=== PATIENT | female | born 1995 | race Caucasian/White ===

== ENCOUNTER → 2022-06-27 08:59 | Outpatient (BNVA) | payer OTHER, SELFPAY | PROVIDERS: Visit Provider Nurse Practitioner Family | DX: Z13.89 Encounter for screening for other disorder (principal) ==

== ENCOUNTER 2023-01-01 09:20 | Outpatient (AMB) | payer OTHER, SELFPAY ==
--- NOTE | 2023-01-01 09:23 | A.OFFVIS_ITS ---
Intake Vital Signs 01/01/23 09:25 Height 5 ft 6 in Weight 168 lb BMI 27.1 BP 98/78 Blood Pressure Location Rt brachial Position Sitting Intake Visit Reasons: 6 month follow up headaches - Confirmed Intake Note: Patient presents for 6 month follow up . Patient states I feel like they've gotten slightly better but still affected by the weather. Allergies verapamil Adverse Reaction (Verified 01/01/23 09:26) Hives Medication List - Last Reconciled 01/01/23 by NORA Ellsworth amitriptyline 100 mg (4 x 25 mg) PO BEDTIME 90 days propranolol 20 mg PO BID rizatriptan 5 - 10 mg (0.5 - 1 x 10 mg) PO Q2H PRN 21 days HPI HPI Comments History of Present Illness Details 27-yr-old female presents for f/u visit. Pt denies any significant interval medical changes. Pt reports she is having 5-6 headcahe days per month, 1-2 migraine days and the other headache days. The Rizatriptan is usually helpful is taken early enough. May take for stronger regular headache which helps. Migraine triggers still include weather changes. Sometimes the migraine attack comes on too quick and the Rizatriptan does not help as well. Tolerating Amitriptyline, Rizatripan, Propranolol well. No dry mouth. BP is lower today at 98/78. 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 Review of Systems Const All systems reviewed & are unremarkable except as noted in HPI and below Physical Exam Vital Signs: Last Vital Signs BP 98/78 01/01/23 09:25 BMI result Body Mass Index 27.1 Const General: cooperative and no acute distress Orientation/consciousness: patient oriented x3 HEENT Head: Yes normocephalic Resp Effort & Inspection: normal respiratory effort and able to speak in complete sentences Neuro General: patient oriented x3, gait normal and CN's II-XI intact bilaterally Cognition (Neuro): normal cognition Motor exam (neuro): 5/5 motor strength present throughout Psych Appearance: grossly normal Mental Status: mental status grossly normal Speech and movement: Normal speech and movement present Affect: normal affect Attitude: cooperative Thought process: Normal thought process present Thought content: Normal thought content present Insight: Good insight present (Psych) Judgement: Good judgement present (Psych) Assessment & Plan Assessment & Plan (1) Migraine without aura: Code(s): G43.009 - Migraine without aura, not intractable, without status migrainosus (2) 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 Continue Rizatriptan 5-10mg (1/2 - 1 tab) at onset of headache, may repeat in 2 hours. Max of 2 tabs per 24 hours. May adjunct with OTC Tylenol 650mg q 4 hours, Ibuprofen 600mg q 6 hours, or Naproxen 440mg q 12 hrs prn. Continue Propranolol 20mg bid- managed by cardiology. Continue blue light filtering glasses and computer screens. Continue noise reduction headphones while at work. Previous acute migraine tx's- Sumatriptan- not tolerated. Future considerations- Nerivio (information given to pt), CGRP MaB (note pt is nervous about injections). f/u in 6 months or sooner prn Medications: Changed From amitriptyline 75 mg (3 x 25 mg) PO BEDTIME 90 days 270 tabs 1RF To amitriptyline 100 mg (4 x 25 mg) PO BEDTIME 360 tabs 1RF 90 days Coding Level of Care Code Est Pt Level 4 (95214) Diagnoses Migraine without aura G43.009 COVID-19 bran camacho U09.9
[2023-01-01 09:25] VITALS: BP 98/78; BMI 27.1
== END 2023-01-01 10:14 | disposition home or self-care (01) ==
PROVIDERS: Visit Provider Nurse Practitioner Family
DX: G43.009 Migraine without aura, not intractable, without status migrainosus (principal); U09.9 Post COVID-19 condition, unspecified
CPT/HCPCS: 99214

== ENCOUNTER → 2023-01-01 09:20 | Outpatient (BNVA) | payer OTHER, SELFPAY | PROVIDERS: Visit Provider Nurse Practitioner Family ==

== ENCOUNTER 2023-06-26 08:18 | Outpatient (AMB) | payer OTHER, SELFPAY ==
[2023-06-26 08:22] VITALS: BP 100/78; PULSE 78; O2SAT 98; BMI 28.4
--- NOTE | 2023-06-26 08:22 | A.OFFVIS_ITS ---
Intake Vital Signs 06/26/23 08:22 Height 5 ft 6 in Weight 176 lb BMI 28.4 BP 100/78 Blood Pressure Location Rt brachial Position Sitting Pulse 78 Pulse Source Pulse Oximeter Pulse Oximetry (%) 98 Oxygen Delivery Method Room Air Intake Visit Reasons: 6 month follow up headaches-LVM Intake Note: Patient presents for 6 month follow up headaches. my headaches are slightly better. Allergies verapamil Adverse Reaction (Verified 06/26/23 08:29) Hives Medication List - Last Reconciled 06/26/23 by NORA Ellsworth amitriptyline 100 mg (4 x 25 mg) PO BEDTIME 90 days propranolol 20 mg PO BID rizatriptan 5 - 10 mg (0.5 - 1 x 10 mg) PO Q2H PRN 21 days HPI HPI Comments History of Present Illness Details 27-yr-old female presents for f/u visit. Pt denies any significant interval medical changes. Pt reports she is having more good days than bad days. No migraines in days in Apr. She usually would have no headaches Sun, , Sun, and then have mild-mod and Sunday- which responds to Naproxen and/or Rizatriptan. Has had a few migraines in May. Headaches still triggered by weather changes and noise. She did increase the Amitriptyline to 100mg qhs- tolerating well. The Rizatriptan is better tolerated- does not cause nausea. 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 Physical Exam Vital Signs: Last Vital Signs Pulse 78 06/26/23 08:22 BP 100/78 06/26/23 08:22 Pulse Ox 98 06/26/23 08:22 Oxygen Delivery Method Room Air 06/26/23 08:22 BMI result Body Mass Index 28.4 Const General: cooperative and no acute distress Orientation/consciousness: patient oriented x3 Resp Effort & Inspection: normal respiratory effort and able to speak in complete sentences Neuro General: patient oriented x3 Cranial nerves: Yes CN's II-XII intact bilaterally Cognition (Neuro): normal cognition Psych Appearance: grossly normal Mental Status: mental status grossly normal Speech and movement: Normal speech and movement present Affect: normal affect Attitude: cooperative Assessment & Plan Assessment & Plan (1) Migraine without aura: Code(s): G43.009 - Migraine without aura, not intractable, without status migrainosus (2) COVID-19 long halupe: Code(s): U09.9 - Post COVID-19 condition, unspecified Plan Continue Amitriptyline 100mg qhs. Continue Rizatriptan 5-10mg (1/2 - 1 tab) at onset of headache, may repeat in 2 hours. Max of 2 tabs per 24 hours. May adjunct with OTC Tylenol 650mg q 4 hours, Ibuprofen 600mg q 6 hours, or Naproxen 440mg q 12 hrs prn. Continue Propranolol 20mg bid- managed by cardiology. Continue blue light filtering glasses and computer screens. Continue noise reduction headphones while at work. Previous acute migraine tx's- Sumatriptan- not tolerated. Future considerations- Nerivio (information given to pt), CGRP MaB (note pt is nervous about injections). f/u in 6 months or sooner prn Medications: New amitriptyline 100 mg PO BEDTIME 90 tabs 1RF 90 days Refilled rizatriptan max 2 tabs per day or 4 tabs per week 5 - 10 mg (0.5 - 1 x 10 mg) PO Q2H PRN 12 tabs 6RF migraine headache 21 days Discontinued amitriptyline Discontinued Reason: Doctor's Order 100 mg (4 x 25 mg) PO BEDTIME 90 days 360 tabs 1RF Coding Level of Care Code Est Pt Level 4 (51552) Diagnoses Migraine without aura G43.009 COVID-19 bran camacho U09.9
== END 2023-06-26 09:21 | disposition home or self-care (01) ==
PROVIDERS: Visit Provider Nurse Practitioner Family
DX: G43.009 Migraine without aura, not intractable, without status migrainosus (principal); U09.9 Post COVID-19 condition, unspecified
CPT/HCPCS: 99214

== ENCOUNTER → 2023-06-26 08:18 | Outpatient (BNVA) | payer OTHER, SELFPAY | PROVIDERS: Visit Provider Nurse Practitioner Family ==

== ENCOUNTER 2023-12-25 09:19 | Outpatient (AMB) | payer OTHER, SELFPAY ==
--- NOTE | 2023-12-25 09:26 | A.OFFVIS_ITS ---
Vital Signs 12/25/23 09:27 Height 5 ft 6 in Weight 181 lb BMI 29.2 BP 112/74 Blood Pressure Location Rt brachial Position Sitting Intake Visit Reasons: 6 month follow up headaches Intake Note: Patient presents for 6 month follow up. patient still having migraines no change Allergies verapamil Adverse Reaction (Verified 12/25/23 09:28) Hives Medication List - Last Reconciled 12/25/23 by NORA Ellsworth amitriptyline 100 mg PO BEDTIME 90 days propranolol 20 mg PO BID rizatriptan 5 - 10 mg (0.5 - 1 x 10 mg) PO Q2H PRN 21 days HPI Comments Details: 28-yr-old female presents for f/u visit. Pt denies any significant interval medical changes. Pt states that her migraine frequency varies depending on work routine. 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 She contin ues to use noise cancellation ear plugs and blue light filtering glasses. Compliant w/ Amitriptyline and Propranolol Rizatriptan is still helpful. 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 Physical Exam Vital Signs: Last Vital Signs BP 112/74 12/25/23 09:27 BMI result Body Mass Index 29.2 Const General: cooperative and no acute distress Orientation/consciousness: patient oriented x3 Resp Effort & Inspection: normal respiratory effort and able to speak in complete sentences Neuro General: patient oriented x3 Cranial nerves: Yes CN's II-XII intact bilaterally Cognition (Neuro): normal cognition Psych Appearance: grossly normal Mental Status: mental status grossly normal Speech and movement: Normal speech and movement present Affect: normal affect Attitude: cooperative Assessment & Plan Assessment & Plan (1) Migraine without aura: Code(s): G43.009 - Migraine without aura, not intractable, without status migrainosus Category: Medical (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 Continue Rizatriptan 5-10mg (1/2 - 1 tab) at onset of headache, may repeat in 2 hours. Max of 2 tabs per 24 hours. May adjunct with OTC Tylenol 650mg q 4 hours, Ibuprofen 600mg q 6 hours, or Naproxen 440mg q 12 hrs prn. Continue Propranolol 20mg bid- managed by cardiology. Continue blue light filtering glasses and computer screens. Info shared on nighat tinted blue light filtering glasses. Continue noise reduction headphones while at work. Previous acute migraine tx's- Sumatriptan- not tolerated. Future considerations- Nerivio (information given to pt), CGRP antagonist- such as atogepant (note pt is nervous about injections/needle phobia). f/u in 6 months or sooner prn Medications: Refilled amitriptyline 100 mg PO BEDTIME 90 days 90 tabs 1RF rizatriptan max 2 tabs per day or 4 tabs per week 5 - 10 mg (0.5 - 1 x 10 mg) PO Q2H 21 days PRN 12 tabs 6RF migraine headache Coding Level of Care Code Est Pt Level 4 (22428) Diagnoses Migraine without aura G43.009 COVID-19 long hauler U09.9 Phonophobia F40.298 Photophobia H53.149
[2023-12-25 09:27] VITALS: BP 112/74; BMI 29.2
== END 2023-12-25 10:02 | disposition home or self-care (01) ==
PROVIDERS: PCP Family Medicine; Visit Provider Nurse Practitioner Family
DX: G43.009 Migraine without aura, not intractable, without status migrainosus (principal); U09.9 Post COVID-19 condition, unspecified; F40.298 Other specified phobia; H53.149 Visual discomfort, unspecified
CPT/HCPCS: 99214

== ENCOUNTER → 2023-12-25 09:19 | Outpatient (BNVA) | payer OTHER, SELFPAY | PROVIDERS: PCP Family Medicine; Visit Provider Nurse Practitioner Family ==

== ENCOUNTER 2024-07-15 10:19 | Outpatient (AMB) | payer OTHER, SELFPAY ==
[2024-07-15 10:25] VITALS: BP 114/78; PULSE 72; O2SAT 99; BMI 30.2
--- NOTE | 2024-07-15 10:25 | MHC.OFFVIS ---
Vital Signs 07/15/24 10:25 Height 5 ft 6 in Weight 187 lb BMI 30.2 BP 114/78 Blood Pressure Location Rt brachial Position Sitting Pulse 72 Pulse Source Pulse Oximeter Pulse Oximetry (%) 99 Intake Visit Reasons: F/U Intake Note: Patient presents follow up Migraine. Allergies verapamil Adverse Reaction (Verified 07/15/24 10:27) Hives Medication List - Last Reconciled 07/15/24 by NORA Ellsworth amitriptyline 100 mg PO BEDTIME 90 days propranolol 20 mg PO BID rizatriptan 5 - 10 mg (0.5 - 1 x 10 mg) PO Q2H PRN 21 days HPI Comments Details: 28-yr-old female presents for f/u visit. Pt denies any significant interval medical changes. Pt states that her migraine frequency varies depending on work routine. Pt reports that in early June she had a more severe migraine in early June, which lasted 2 days and then had a few additional residual headache days. This migraine was also a/w nausea. Since, she has had an increase in her headache frequency from 4-5 headache days per week, 1 of which is a migraine. which can e a/w nausea and residual symptoms. 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 She continues to use noise cancellation ear plugs and blue light filtering glasses. Compliant w/ Amitriptyline and Propranolol Rizatriptan is still helpful. 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 Info shared on nighat tinted blue light filtering glasses. Continue noise reduction headphones while at work. For migraine prevention: Start Atogepant (Qulipta) 60mg daily at bedtime. Potential side effects include but are not limited to drowsiness, nausea, constipation, weight loss. Continue Amitriptyline 100mg qhs. Continue Propranolol 20mg bid- managed by cardiology. For acute migraine treatment: Continue Rizatriptan 5-10mg (1/2 - 1 tab) at onset of headache, may repeat in 2 hours. Max of 2 tabs per 24 hours. May adjunct with OTC Tylenol 650mg q 4 hours, Ibuprofen 600mg q 6 hours, or Naproxen 440mg q 12 hrs prn. Start ondansetron 4 mg p.o. daily p.r.n. nausea/migraine. Previous acute migraine tx's- Sumatriptan- not tolerated. Future considerations- Nerivio (information given to pt), CGRP antagonist- such as atogepant (note pt is nervous about injections/needle phobia). f/u in 6 months or sooner prn Medications: New atogepant (Qulipta) 60 mg PO DAILY 30 tabs 6RF 30 days G43.009 - Migraine without aura, not intractable, without status migrainosus ondansetron HCl 4 mg PO BEDTIME 20 tabs 2RF 30 days Coding Level of Care Code Est Pt Level 4 (54401) Diagnoses Migraine without aura G43.009 COVID-19 long hauler U09.9 Phonophobia F40.298 Photophobia H53.149
--- OUTSIDE RECORDS SUMMARY | 2024-07-15 12:06 | XMS_ITS | Data Portability ---
Author Organization 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 I have reviewed, collected, and updated relevant history and performed a physical exam. I have reviewed labs, x-rays and/or specialty notes I have interpreted new studies including EKG Below is my assessment and plan for this patient? s care today. [email or web address] Not available 08/11/2021 18:44:54 Plan of Treatment Reminders Order Date Submit Date Provider Last Modified By Organization Details Last Modified Time Details Appointments None recorded. Lab None recorded. Referral cardiologi st referral - please schedule patient for holter monitor f/u with cardiologi st does NOT want to meet with Dr. Stewart 2021 022 [email or web address] [facility] [address], [address], 13:14:[address] referral - pt request to see a female Provider for follow up visits - understand s 1st FISH PROCESSING SUPERVISOR visit needs to be with 2021 022 ISABEL [facility] [address], [address], 12:55:57 Procedures None recorded. Surgeries None recorded. Imaging electrocar diogram 2021 022 [facility], [address] [facility], [place], [address], 07:16:42 holter monitor 2021 022 [email or web address] 1 [facility]), [address] [facility] [address], [place], [address], 18:46:03 Medication Orders propranolo l 10 mg tablet 2021 022 [email or web address] [id number], [address] [place], [address], 16:04:20 propranolo l 10 mg tablet 2021 022 wbaird [id number], [address] [place] [address], [address], 16:04:20 propranolo l 10 mg tablet 2021 022 [email or web address] [id number], [address] [place] [address], [address], 16:04:20 Patient TargetsNo targets recorded. Patient Instructions Encounter Date Encounter Id Patient Instructions Last Modified By Organization Details Last Modified Time 08/11/2021 [id number] - Per our discussion you have agreed with the above assessment/plan as stated. - Please follow-up with our office as recommended and perform lab work/imaging/refe rral if indicated. - You can follow-up with our office sooner for any acute concern at [phone]. - If unable to reach our practice and you are in need of immediate care do not hesitate to seek immediate medical attention by calling 911 or going to the ER/Urgent care. [email or web address] Not available 08/11/2021 18:56:35 08/18/2021 [id number] - Per our discussion you have agreed with the above assessment/plan as stated. - Please follow-up with our office as recommended and perform lab work/imaging/refe rral if indicated. - You can follow-up with our office sooner for any acute concern at [phone]. - If unable to reach our practice and you are in need of immediate care do not hesitate to seek immediate medical attention by calling 911 or going to the ER/Urgent care. - All questions answered. [email or web address] Not available 08/18/2021 10:04:37 08/26/2021 [id number] - Per our discussion you have agreed with the above assessment/plan as stated. - Please follow-up with our office as recommended and perform lab work/imaging/refe rral if indicated. - You can follow-up with our office sooner for any acute concern at [phone]. - If unable to reach our practice and you are in need of immediate care do not hesitate to seek immediate medical attention by calling 911 or going to the ER/Urgent care. - All questions answered. [email or web address] Not available 08/26/2021 12:15:48 09/08/2021 [id number] - Per our discussion you have agreed with the above assessment/plan as stated. - Please follow-up with our office as recommended and perform lab work/imaging/refe rral if indicated. - You can follow-up with our office sooner for any acute concern at [phone]. - If unable to reach our practice and you are in need of immediate care do not hesitate to seek immediate medical attention by calling 911 or going to the ER/Urgent care. - All questions answered. [email or web address] Not available 09/08/2021 07:50:36 09/26/2021 [id number] - Per our discussion you have agreed with the above assessment/plan as stated. - Please follow-up with our office as recommended and perform lab work/imaging/refe rral if indicated. - You can follow-up with our office sooner for any acute concern at [phone]. - If unable to reach our practice and you are in need of immediate care do not hesitate to seek immediate medical attention by calling 911 or going to the ER/Urgent care. - All questions answered. 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 Stewart Referring Physician: Naveen Thibodeaux [facility], Encounter Date: 08/26/2021 Results Created Date Observation Date Name Description Value Unit Range Abnormal Flag Note LastModifiedBy Organization Detail LastModifiedTime 11/10/19 22 11/10/2021 SARS- COV-2 RNA (COVI D-19) , QUALI TATIV E NAAT sarscov2 NEGATI VE negati ve normal This test has been autho rized by the FDA under an Emerg ency Use Autho rizat ion(E UA) for you by autho rized labs. Not Available [address], [address], 11/10/2021 14:46:49 04/04/20 22 04/04/2022 CBC WBC 5.52 K/? ? ?L 3.98-1 0.04 Not Available [address], [address], 04/04/2022 17:05:18 04/04/20 22 04/04/2022 CBC RBC 4.38 M/? ? ?L 3.93-5 .22 Not Available [address], [address], 04/04/2022 17:05:18 04/04/20 22 04/04/2022 CBC HGB 12.7 g/dL 11.2-1 5.7 Not Available [address], [address], 04/04/2022 17:05:18 04/04/20 22 04/04/2022 CBC HCT 38.7 % 34.1-4 4.9 Not Available [address], [address], 04/04/2022 17:05:18 04/04/20 22 04/04/2022 CBC MCV 88.4 fL 79.4-9 4.8 Not Available [address], [address], 04/04/2022 17:05:18 04/04/20 22 04/04/2022 CBC MCH 29.0 pg 25.6-3 2.2 Not Available [address], [address], 04/04/2022 17:05:18 04/04/20 22 04/04/2022 CBC MCHC 32.8 g/dL 32.2-3 5.5 Not Available [address], [address], 04/04/2022 17:05:18 04/04/20 22 04/04/2022 CBC plt 299 K/? ? ?L 182-36 9 Not Available [address], [address], 04/04/2022 17:05:18 04/04/20 22 04/04/2022 CBC MPV 9.7 fL 9.4-12 .3 Not Available [address], [address], 04/04/2022 17:05:18 04/04/20 22 04/04/2022 CBC neut% 53.0 % 34.0-7 1.1 Not Available [address], [address], 04/04/2022 17:05:18 04/04/20 22 04/04/2022 CBC neut# 2.93 1.56-6 .13 Not Available [address], [address], 04/04/2022 17:05:18 04/04/20 22 04/04/2022 CBC lymph % 36.1 % 19.3-5 1.7 Not Available [address], [address], 04/04/2022 17:05:18 04/04/20 22 04/04/2022 CBC lymph # 1.99 K/? ? ?L 1.18-3 .74 Not Available [address], [address], 04/04/2022 17:05:18 04/04/20 22 04/04/2022 CBC mono% 8.9 % 4.7-12 .5 Not Available [address], [address], 04/04/2022 17:05:18 04/04/20 22 04/04/2022 CBC mono# 0.49 0.24-0 .56 Not Available [address], [address], 04/04/2022 17:05:18 04/04/20 22 04/04/2022 CBC eo% 0.7 % 0.7-5. 8 Not Available [address], [address], 04/04/2022 17:05:18 04/04/20 22 04/04/2022 CBC eo# 0.04 0.04-0 .36 Not Available [address], [address], 04/04/2022 17:05:18 04/04/20 22 04/04/2022 CBC baso% 0.9 % 0.1-1. 2 Not Available [address], [address], 04/04/2022 17:05:18 04/04/20 22 04/04/2022 CBC baso# 0.05 0.00-0 .08 Not Available [address], [address], 04/04/2022 17:05:18 04/04/20 22 04/04/2022 CBC RDW-CV 12.9 % 11.7-1 4.4 Not Available [address], [address], 04/04/2022 17:05:18 04/04/20 22 04/04/2022 CBC Ig% 0.400 % 0.000- 1.500 Ig % >0.5 Indic ates possi ble Left Shift Not Available [address], [address], 04/04/2022 17:05:18 04/04/20 22 04/04/2022 CBC Ig# 0.020 0.000- 0.093 Not Available [address], [address], 04/04/2022 17:05:18 04/04/20 22 04/04/2022 CBC NRBC% 0.0 % 0.0-0. 2 Not Available [address], [address], 04/04/2022 17:05:18 04/04/20 22 04/04/2022 CBC NRBC# 0.000 0.000- 0.012 Not Available [address], [address], 04/04/2022 17:05:18 04/04/20 22 04/05/2022 FREE T4 free T4 1.06 NG/dL 0.75-1 .54 Not Available [address], [address], 04/05/2022 09:53:46 04/04/20 22 04/05/2022 COMP. METAB OLIC PANEL glucose 117 mg/dL 70-100 high Not Available [address], [address], 04/05/2022 10:49:04 04/04/20 22 04/05/2022 COMP. METAB OLIC PANEL BUN 12 mg/dL 7-18 Not Available [address], [address], 04/05/2022 10:49:04 04/04/20 22 04/05/2022 COMP. METAB OLIC PANEL creatinine 0.7 mg/dL 0.8-1. 3 low Not Available [address], [address], 04/05/2022 10:49:04 04/04/20 22 04/05/2022 COMP. METAB OLIC PANEL B/C 17.1 ratio Not Available [address], [address], 04/05/2022 10:49:04 04/04/20 22 04/05/2022 COMP. METAB OLIC PANEL GFR >=60ML /MIN mL/mi n normal >=60m L/min - Gracie l or midly reduc ed <60mL /min- Decre ased kidne y funct ion <15mL /min - Kidne y failu re [facility] calcu lates estim ated Glome rular Filtr ation Rate (eGFR ) using the Chron ic Kidne y Disea se Epide miolo gy Colla borat ion (CKD- EPI) Equat ion (Abdi kendrick et. al 2020) as recom boom d by the Natio nal Kidne y Found ation . eGFR is based on age, serum creat inine , and sex. CKD-E PI does not calcu late eGFR by race, does not apply to child casey (age <18 years ), and shoul d not be used in pregn srinivasa. Not Available [address], [address], 04/05/2022 10:49:04 04/04/20 22 04/05/2022 COMP. METAB OLIC PANEL sodium 138 mmol/ L 136-14 5 Not Available [address], [address], 04/05/2022 10:49:04 04/04/20 22 04/05/2022 COMP. METAB OLIC PANEL potassium 4.7 mmol/ L 3.5-5. 1 Not Available [address], [address], 04/05/2022 10:49:04 04/04/20 22 04/05/2022 COMP. METAB OLIC PANEL chloride 101 mmol/ L 96-107 Not Available [address], [address], 04/05/2022 10:49:04 04/04/20 22 04/05/2022 COMP. METAB OLIC PANEL anion gap 6.7 5.0-15 .0 Not Available [address], [address], 04/05/2022 10:49:04 04/04/20 22 04/05/2022 COMP. METAB OLIC PANEL CO2 30 mmol/ L 21-32 Not Available [address], [address], 04/05/2022 10:49:04 04/04/20 22 04/05/2022 COMP. METAB OLIC PANEL calcium 8.8 mg/dL 8.5-10 .3 Not Available [address], [address], 04/05/2022 10:49:04 04/04/20 22 04/05/2022 COMP. METAB OLIC PANEL total protein 7.3 g/dL 6.4-8. 2 Not Available [address], [address], 04/05/2022 10:49:04 04/04/20 22 04/05/2022 COMP. METAB OLIC PANEL albumin 3.9 g/dL 3.4-5. 0 Not Available [address], [address], 04/05/2022 10:49:04 04/04/20 22 04/05/2022 COMP. METAB OLIC PANEL globulin 3.4 g/dL Not Available [address], [address], 04/05/2022 10:49:04 04/04/20 22 04/05/2022 COMP. METAB OLIC PANEL A/G 1.1 ratio 0.8-2. 0 Not Available [address], [address], 04/05/2022 10:49:04 04/04/20 22 04/05/2022 COMP. METAB OLIC PANEL total bilirubin 0.20 mg/dL 0.00-1 .00 Not Available [address], [address], 04/05/2022 10:49:04 04/04/20 22 04/05/2022 COMP. METAB OLIC PANEL AST 16 U/L 0-37 Not Available [address], [address], 04/05/2022 10:49:04 04/04/20 22 04/05/2022 COMP. METAB OLIC PANEL ALT 22 U/L 6-63 Not Available [address], [address], 04/05/2022 10:49:04 04/04/20 22 04/05/2022 COMP. METAB OLIC PANEL alk. phos. 57 U/L 50-136 Not Available [address], [address], 04/05/2022 10:49:04 04/04/20 22 04/05/2022 TSH TSH 1.87 uIU/m L 0.50-6 .00 The Ameri can Colle ge of Endoc rinol ogy and Ameri can Thyro id Assoc iatio n recom mend goal TSH value s betwe en 0.4-4 .0 mIU/m L. Not Available [address], [address], 04/05/2022 11:28:47 08/03/19 22 08/02/2021 elect shirin katz am No observ ation record ed. [email or web address], [address], 08/11/2021 18:43:13 08/03/19 22 08/02/2021 elect rocar diogr am No observ ation record ed. [email or web address] Not Available 08/02 16:06:39 08/12/19 22 08/12/2021 elect rocar diogr am No observ ation record ed. [address], [address], 08/12/2021 07:16:42 08/13/19 elect rocar diogr am No observ ation record ed. [email or web address] Not Available 2021 07:53:50 09/09/19 22 09/06/2021 trans -thor acic echoc ardio gram (TTE) (PROC ) No observ ation record ed. [email or web address] named [facility] [address], [address], 09/08/2021 16:26:31 Result Notes None recorded. 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 CHRISTY Diana [address] [place] [address], [phone] , [facility] 2 19:07:20 Migraine with aura 5051538 Active 2020 CHRISTY Diana [address] [place] [address], [phone] , [facility] 2 19:08:13 COVID-19 182477143 Active 2021 tested pos 07/21/21 CHRISTY Diana [address] [place] [address], [phone] , [facility] 2 19:09:55 Obesity 112490824 Completed 200609/04/2016 Removal Reason: weight stable Jana Aranda NP [address] [place] [address], [phone] , [facility] 7 11:32:14 Acute stress disorder 20787468 Completed 200112/13/2010 Not Available [facility] 3 03:11:07 Sprain of ankle and/or foot 197196195 Completed 200812/13/2010 Not Available [facility] 3 03:11:07 Problem Notes None recorded. Procedures Surgical History None recorded. Imaging Results Imaging Date Name Status LastModified by Organization Details LastModified Time 08/02/2021 electrocardiogram completed [address], [address], 08/11/2021 18:43:13 08/02/2021 electrocardiogram [place] [address] Informa tion not available 08/02/2021 16:06:39 08/12/2021 electrocardiogram completed [address], [address], 08/12/2021 07:16:42 08/12/2021 electrocardiogram completed [email or web address] Informa tion not available 08/22/2021 07:53:50 09/06/2021 trans-thoracic echocardiogram (TTE) (PROC) completed [address] [facility] [address], [address], 09/08/2021 16:26:31 Procedure Notes None recorded. Medical Equipment None Reported. Allergies No known drug allergies Medications Name Sig Start Date Stop Date Status Note LastModified by Organization Details LastModified Time Tubersol 5 tub. unit/0.1 mL intraderm al injection solution Inject 0.1 mL by intrader mal route. 08/01 completed Not Available Not Available Not Available sumatript an 50 mg tablet TAKE 1 - 2 TABLETS BY ORAL ROUTE AFTER ONSET OF MIGRAINE ; MAY REPEAT AFTER 2 HOURS IF HEADACHE RETURNS (MAX 4 PER WEEK) 03/31 completed Not Available Not Available Not Available amitripty line 50 mg tablet Take 1.5 tablets by mouth every evening. 03/31 completed prescrib ed by neuro Not Available Not Available Not Available propranol ol 10 mg tablet TAKE 1 TABLET BY MOUTH TWICE A DAY 03/31 completed Not Available Not Available Not Available [employer] Vitamins chewable tablet 2006 active Take 1.00 tabs every day Not Available Not Available Not Available ibuprofen prn 03/31 completed Not Available Not Available Not Available Vitamin D 03/31 completed Not Available Not Available Not Available Tylenol PRN 03/31 completed Not Available Not Available Not Available verapamil 09/08 completed Not Available Not Available Not Available Vitamin C (ascorbat e calcium) 03/31 completed Not Available Not Available Not Available Vitals Date Recorded Body height Body mass index (BMI) Body weight Oxygen saturation Oxygen saturation in Arterial blood by Pulse oximetry Heart rate Systolic blood pressure Diastolic blood pressure Provider Name and Address Organization Details Last Updated DateTime 2 167.01 cm 31.1 kg/m2 02571.1 9 g 98 % 98 % 130 /min 142 mm[Hg] 92 mm[Hg] Amaris Contreras MA [facility] 2 16:09:11 Date Recorded Body height Body mass index (BMI) Body weight Heart rate Systolic blood pressure Diastolic blood pressure Provider Name and Address Organization Details Last Updated DateTime 2 167.01 cm 30.6 kg/m2 07202.3 7 g 130 /min 120 mm[Hg] 80 mm[Hg] Danyelle Soto MA [facility] 2 09:47:05 Date Recorded Body height Body mass index (BMI) Body weight Heart rate Oxygen saturation Oxygen saturation in Arterial blood by Pulse oximetry Systolic blood pressure Diastolic blood pressure Provider Name and Address Organization Details Last Updated DateTime 2 167.01 cm 30.5 kg/m2 04824.1 7 g 126 /min 98 % 98 % 142 mm[Hg] 80 mm[Hg] Danyelle Soto MA [facility] 2 12:06:16 Date Recorded Body height Body mass index (BMI) Body weight Heart rate Oxygen saturation Oxygen saturation in Arterial blood by Pulse oximetry Systolic blood pressure Diastolic blood pressure Provider Name and Address Organization Details Last Updated DateTime 2 167.01 cm 29.8 kg/m2 03416.5 g 72 /min 97 % 97 % 118 mm[Hg] 82 mm[Hg] Lauren Rowan MA [facility] 2 08:20:11 Date Recorded Body height Body mass index (BMI) Body weight Heart rate Oxygen saturation Oxygen saturation in Arterial blood by Pulse oximetry Systolic blood pressure Diastolic blood pressure Provider Name and Address Organization Details Last Updated DateTime 2 167.01 cm 29 kg/m2 27824.8 4 g 80 /min 98 % 98 % 118 mm[Hg] 80 mm[Hg] Danyelle Soto MA [facility] 2 09:39:52 Social History Question Answer Notes LastModified by Organizat ion Details LastModified Time Tobacco Smoking Status Never Smoker 08/2016 [facility]2016 10:59:15 What Is Your Level Of Alcohol Consumption? None 08/2016 Information not available 09/04/2016 What Is Your Level Of Caffeine Consumption? Moderate 1-2 Cpd Information not available 09/04/2016 How Much Tobacco Do You Chew? None 7 Information not available 03/02/2011 What Type Of Diet Are You Following? REGULAR 7 Information not available 03/02/2011 Education 4 Year [facility] Fall 2016 [email or web address] Information not available 11/30/2008 Live Alone Or With Others? With Others Parents Information not available 09/04/2016 Mosquito Repellent Used Routinely Yes Information not available 09/04/2016 What Was The Date Of Your Most Recent Tobacco Screening? 09/08/2021 [email or web address] Information not available 09/08/2021 Seat Belts Used Routinely Yes 7 Information not available 03/02/2011 Are You Sexually Active? No 7 Information not available 03/02/2011 Smoke Alarm In Home Yes Information not available 09/04/2016 What Types Of Sporting Activities Do You Participate In? Horse Back Riding Information not available 09/04/2016 General Stress Level Low 7 Information not available 03/02/2011 Do You Use Sunscreen Routinely? Yes 7 Information not available 03/02/2011 Sex: Female Functional Status Question Answer Note LastModified by Organizat ion Details LastModified Time What is your exercise level? Moderate Information n ot available 03/02/2011 Mental Status None recorded. Family History Nothing Reported. Medical History No medical history recorded. Gynecological History Statement/Question Response Menses Monthly Y [age] Menarche [age] Obstetrics History GPAL:G 0 P 0 0 0 0 Immunizations Vaccine Type Date Status Note Provider Nam e and Address Organization Details Recorded Time DTaP, unspecified formulation 3 completed Not Available [facility] 03/01/2011 05:21:07 MMR 3 completed Not Available [facility] 03/01/2011 05:21:07 IPV 3 completed Not Available [facility] 03/01/2011 05:21:07 DTaP, unspecified formulation 9 completed Not Available [facility] 03/01/2011 05:22:13 Hib, unspecified formulation 8 completed Not Available [facility] 03/01/2011 05:22:26 varicella 9 completed Not Available [facility] 03/01/2011 05:22:26 IPV 8 completed Not Available [facility] 03/01/2011 05:22:26 Hib, unspecified formulation 7 completed Not Available [facility] 03/01/2011 05:22:26 DTaP, unspecified formulation 8 completed Not Available [facility] 03/01/2011 05:22:26 Hib, unspecified formulation 9 completed Not Available [facility] 03/01/2011 05:22:26 Hep B, unspecified formulation 7 completed Not Available [facility] 03/01/2011 05:22:26 DTaP, unspecified formulation 8 completed Not Available [facility] 03/01/2011 05:22:26 IPV 8 completed Not Available [facility] 03/01/2011 05:22:26 Hep B, unspecified formulation 8 completed Not Available [facility] 03/01/2011 05:22:26 IPV 7 completed Not Available [facility] 03/01/2011 05:22:26 Hep B, unspecified formulation 8 completed Not Available [facility] 03/01/2011 05:22:26 Hib, unspecified formulation 7 completed Not Available [facility] 03/01/2011 05:22:26 DTaP, unspecified formulation 9 completed Not Available [facility] 03/01/2011 05:22:26 MMR 8 completed Not Available [facility] 03/01/2011 05:22:26 DTaP, unspecified formulation 7 completed Not Available [facility] 03/01/2011 05:22:26 Tdap 9 completed Not Available [facility] 05/03/2019 02:24:02 Tdap 9 completed Not Available [facility] 05/03/2019 02:19:48 COVID-19, mRNA, LNP-S, PF, 100 mcg/0.5mL dose or 50 mcg/0.25mL dose 1 completed Hortensia Lara MA [facility] 08/01/2021 08:24:49 COVID-19 vaccine, vector-nr, rS-Ad26, PF, 0.5 mL 1 completed Amaris Contreras MA [facility] 08/02/2021 08:18:42 COVID-19, mRNA, LNP-S, bivalent, PF, 30 mcg/0.3 mL dose 2 completed Tri Coleman RN [facility] 12/30/2021 11:50:18 Past Encounters Encounter ID Performer Location Encounter Start Date Encounter Closed Date Diagnosis/Indication Diagnosis SNOMED-CT Code Diagnosis ICD10 Code Diagnosis Note [id number] MILENA PATHAK, OFFICE [address] [facility] [place] [address] 10/18/2001 10:34:38 05/06/2008 02:02:29 [id number] MILENA PATHAK, OFFICE [address] [facility] [place] [address] 01/22/2003 09:38:28 01/22/2003 12:35:24 [id number] [facility], OFFICE [address] [facility] [place] [address] 01/23/2005 10:11:33 01/23/2005 14:36:17 [id number] [facility], OFFICE [address] [facility] [place] [address] 02/25/2007 10:37:09 05/06/2008 02:02:29 [id number] [facility], OFFICE [address] [facility] [place] [address] 11/30/2008 10:39:51 12/01/2008 08:57:26 [id number] [facility], OFFICE [address] [place] [address] [place] [address] 12/21/2010 10:15:21 12/21/2010 11:24:21 [id number] [facility], OFFICE [address] [place] [address] [place] [address] 06/14/2011 13:03:42 06/15/2011 12:06:56 [id number] Lori Cheatham MD [facility] , [address] [place] [address] 06/14/2011 13:36:41 06/14/2011 13:46:42 [id number] Lori Cheatham MD , [facility], OFFICE [address] [place] [address] [place] [address] 07/22/2013 10:02:43 07/22/2013 11:23:41 Well child [id number] Administra tion of bacterial vaccine [id number] pt refusing, will do when all other immunizati ons done prior to [facility] [id number] Examinatio n for population survey [id number] Carla Frey , [facility], OFFICE [address] [facility] [place] [place] [address] 11/25/2013 08:51:38 11/25/2013 09:27:05 Concussion 38654473 after fall of horse, resolved Backache [id number] inter mitte nt numbness L hip/should er after fall--ref Dr Tati kendrick [id number] Nirali Aleman MD , [facility] [address] [facility] [place]ud[place] [phone] 03/08/2015 09:10:01 03/08/2015 10:08:37 Sprain of foot [id number] S93.602A it's unclear how this happened but her theory was she hit the wall with her foot during the night/and that seems likely/she did nothing in the past couple days that she could've injured it and she was fine when she went to bed last night/does have a history of ruptured disc and some sciatica but this is quite different/ at any rate she has crutches will try an Jt wrap she'll ice it /elevation /ibuprofen expect improvemen t over the next 1-2 weeks/we have had a three-way conversati on about x-ray and I think it x-ray is extremely low yield, and can safely be avoided at this time/mom and patient are happy to avoid the radiation [id number] LAWSON, [facility] [address] [facility] [facility] [address] 09/04/2016 10:36:23 09/04/2016 14:49:36 Adult health examination [id number] Z00.00 see Risk Assessment and Lifestyle Change Counseling section above Counseling [id number] Z71 .9 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 Leny suffered a concussion in 2013 after she fell of a horse there was a positive LOC she was evaluated in ED at the time and had negative head CT since she has had difficulty concentrat ing with external stimuli and has headaches when readingShe is requesting accommodat ions for school at [employer] where she will be starting in Nov [id number] HAYDER Cuadra, [facility] [address] [facility] [place] [address] 08/27/2017 08:48:42 08/27/2017 09:13:20 Tuberculosis screening [id number] Z11.1 [id number] BETZAIDA Paige, [facility] [address] [facility] [facility] [address] 10/31/2018 14:20:24 10/31/2018 16:35:20 Active or passive immunization [id number] Z23 [id number] NORA Zamorano, [facility] [address] [place] [facility] [address] 08/01/2021 08:22:53 08/01/2021 10:04:36 COVID-19 [id number] U07.1 DX through PCR on 07/21/21. Moderate symptoms. Not considered high risk based on age, PMH.Provid ed work-not for this week. Will need to evaluate need for continued work accomodati ons if she is not improving. Tight chest [id number] R07 .89 Suspect that symptoms are r/t viral illness and will continue to improve. NAD on exam and home HR and 02 SAT WNLs. No HX of asthma. With that being said, I do think Leny would benefit from in-office evaluation since it has been > 2 weeks since symptom onset. 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 Tachycardia [id number] R00. 0 Suspect that symptoms are r/t viral illness and will continue to improve. With that being said, I do think Leny would benefit from in-office evaluation . [id number] CHRISTY Diana , [facility] [address] [facility] [place] [address] 08/02/2021 08:15:55 08/02/2021 09:20:23 COVID-19 [id number] U07.1 Sx onset 07/19/21 w/ positive COVID test 07/21/21. Suspect that symptoms are r/t viral illness and will continue to improve. Continues with tachycardi a and chest tightness, ?post-covi d/prolonge d symptoms. Discussed wide variabilit y in time to symptom resolution , may last for weeks to months. Tight chest [id number] R07 .89 Subjective chest tightness most likely r/t viral illness/ prolonged COVID symptoms. HRR on exam, not diaphoreti c, no clear relationsh ip to activity, unlikely to be cardiac/an patrick. No HX of asthma; O2sat reassuring 98%.Review ed importance of deep breathing. Reviewed red flag symptoms and when to seek emergency care. Tachycardia [id number] R00. 0 EKG sinus tach w/ HR 120. Baseline HR seems to be 70-90's per our record.HRR on exam. Reporting significan t fatigue which is likely related to her tachycardi a. Prolonged COVID syndrome seems likely.Den ies any experience of HR irregulari ty or palpitatio ns, consider holter monitor if these develop and/or tachycardi a persists.R eviewed indication s for ED visit/urge nt f/u. F/u PRN. EKG: P-R i nterval abnormal [id number] R94.31 Borderline short HI syndrome noted on EKG, HI 110. ?preexcita tion. NO delta waves noted. No prior EKG for comparison , consider repeating EKG once more acute symptoms resolved and cardiology referral if indicated. F/u PRN. [id number] , [facility] [address] [facility] [place] [address] 08/11/2021 15:53:59 08/11/2021 16:50:07 Tachycardia [id number] R00.0 EKG sinus tach w/ HR 123. Baseline HR seems to be 70-90's per our record.HRR on exam. Reporting significan t fatigue which is likely related to her tachycardi a. Prolonged COVID syndrome seems likely.Den ies any experience of HR irregulari ty but endorses experience of heartbeat pounding/ palpitatio ns. Unclear clinical picture, should r/o preexcitat ion syndrome/W FW and POTS.Will send for cardiology referral and order holter monitor in the interim. Consider starting BB if unable to tolerate tachycardi a or if sx persist once these other issues are ruled-out. Plan for close monitoring , f/u in 1 week to assess ability to return to work (virtual visit OK).Review ed indication s for ED visit/urge nt f/u. F/u sooner PRN. COVID-19 [id number] U07.1 Sx onset 07/19/21 w/ positive COVID test 07/21/21. Suspect that symptoms are r/t viral illness and will continue to improve. Continues with tachycardi a and chest tightness, ?post-covi d/prolonge d symptoms. Discussed wide variabilit y in time to symptom resolution , may last for weeks to months. EKG: P-R i nterval abnormal [id number] R94.31 I45.6 HI again measured short on repeat EKG. HI 110 >> 106. ?preexcita tion. NO delta waves noted. No historic/p rior EKG for comparison . Wide variation in heart rate, as low as 85 at rest and >120.Uncle ar clinical picture, should r/o preexcitat ion syndrome/W FW and POTS. Pending holter and cardiology referral, see above. F/u in 1 week, sooner PRN. 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 She was evaluated in ED at the time and had negative head CT. Since this event she has had difficulty concentrat ing with external stimuli and has headaches when reading. Followed by concussion clinic ([facility]), last seen October 2020. Ongoing but sx recently worse including mental fog and mild confusion. ?Re: long COVID. In the setting of chronic migraine headaches, see below. Administra tive reason for encounter [id number] Z02.9 On medical leave from work. Return to work date pushed from 08/16 to 08/23, not currently able to tolerate. Plan for 1/2 shifts x2 weeks once able to return. Extension letter generated and form completed for work. Migraine with aura 42069 06 G43.109 Hx of migraines w/ aura, responsive to rest, dark/quiet environmen t, ibuprofen and/or imitrex. Continues on amtriptyli ne 50mg daily at bedtime, prescribed by neuro. [id number] RASHEED Mccabe, [facility] 329 [facility] [place] [address] 08/18/2021 09:45:43 08/18/2021 11:37:02 Tachyarrhythmia [id number] R00.0 symptomati c with exertion and causing generalize d fatigue following recent covid-19 infection 07/21/2021 . prescribed verapamil by cardiology but unable to start medication promptly. will begin this weekend. advised symptomati c carestart verapamil and f/u next week in office for re-assessm ent.oow until 08/30/2021 short term leave paperwork and note provided for employer. Post-acute COVID-19 1119 098432 U09.9 continue symptomati c care. [id number] RASHEED Mccabe [facility] 329 [facility] [place] [address] 08/26/2021 11:47:58 08/26/2021 12:37:43 Tachyarrhythmia 6801911 R00.0 symptomati c with exertion and causing generalize d fatigue following recent covid-19 infection 07/21/2021 .symptoms were improving until prescribed verapamil by cardiology which caused fatigue. patient has d/c medication . advised symptomati c caretrial propranolo lpatient would like to see another cardiologi [facility] placed.f/u in 2 weeksshort term leave paperwork and note provided for employer. Post-acute COVID-19 1119 548141 U09.9 dx 07/21/2021 continues with weakness, fatigue, muscle achesconti nue symptomati c care. [id number] Naveen Thibodeaux PA-C , [facility] [address] [facility] [place] [address] 09/08/2021 08:10:41 09/08/2021 08:41:31 Tachyarrhythmia 4407670 R00.0 symptomati c with exertion and causing generalize d fatigue following recent covid-19 infection 07/21/2021 .symptoms were improving until prescribed verapamil by cardiology which caused fatigue. at last visit 08/26/2021 verapamil d/c and started propranolo l 10 mg BID. since then tachycardi a much improved. symptomati pritesh feeling better. advised symptomati c carecontin ue propranolo l. refill today.f/u with cardiology in 1 week.f/u in 3 weeksshort term leave paperwork and note provided for employer. 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 Post-acute COVID-19 1119 617751 U09.9 dx 07/21/2021 continues with weakness, fatigue, muscle achesconti nue symptomati c care. [id number] RASHEED Mccabe, [facility] [address] [facility] [place] [address] 09/26/2021 09:26:09 09/26/2021 09:56:10 Tachyarrhythmia 9223557 R00.0 symptomati c with exertion and causing generalize d fatigue following recent covid-19 infection 07/21/2021 .symptoms were improving until prescribed verapamil by cardiology which caused fatigue. verapamil d/c and started propranolo l 10 mg BID. since then tachycardi a much improved. symptomati pritesh feeling better. still intermitte nt migraines. advised symptomati c carecontin ue propranolo l. refill today.f/u with cardiology in in november 2021.f/u in 2 weeksshort term leave paperwork and note provided for employer. 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 Post-acute COVID-19 1119 [id number] U09.9 dx 07/21/2021 continues with weakness, fatigue, muscle aches. migraines are the worst.cont inue symptomati c care.advis ed do not overuse sumatripta n as it can make migraines worse. Health Concerns Section Related Observation LastModified by Organization Detai ls LastModified Time None Recorded Concern Status LastModified by Organization Details LastModified Time None Recorded Advance Directives Directive None Recorded Payers Encounter Date Sequence Insurance Name Policy Number Policy Rice Covered Member ID Rice Member ID Guarantor Name 08/11/2021 1 [facility] ([facility] [place] [facility] [id number] Tommie Ortiz [id number] Leny Ortiz 08/18/2021 1 [facility] ([facility] [place] [id number] Tommie Ortiz [id number] Lenyel Ortiz 08/26/2021 1 [facility] ([facility] [place] [id number] Tommie Ortiz [id number] Leny Ortiz 09/08/2021 1 [facility] ([facility] [place] [id number] Tommie Ortiz [id number] Leny Andrei Ortiz 09/26/2021 1 [facility] ([facility] [place] [id number] Tommie Ortiz [id number] Leny Andrei Ortiz Notes Date Note Type Note Provider Name and Address Organization Details Recorded Time 08/11/2021 text/html Leny is a 25-year-old female presents here for a f/u visit with the following concerns: COVID Symptoms lingering. Still experiencing fatigue, cough and tachycardia. Pt reports HR gets to 170s when casually walking around. Went down w/ rest. Resting HF is in 80s-90s. Occurs if she is up for more than 10 minutes or walking up and down stairs. Some continued joint pain. No current fever. Has not been evaluated in the office yet. Taking ibuprofen for muscle aches. Triptans for headache. Was working remotely. Was supposed to go back to work in office on 08/01/21. For 8 hr work day. 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 Does need to ambulate back and forth to bathroom, cafeteria. if lying down in bed pulse is 85-90, if walking goes up to 130's, going up and down stairs it goes up to 150's. Chest isn't as tight CHRISTY Diana [address] [place] [address], [phone], [facility] 08/11/2021 18:58:59 08/18/2021 text/html Leny is a 25-year-old female presents via video for f/u evaluation of long covid syndrome. prior hx of tachyarrhythmia dx for covid-19 07/21/2021 but was sick a few days prior.intermittent fatigue, cough, and tachycardia.tachyarrh ythmia reappeared following covid-[address] 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 Does need to ambulate back and forth to bathroom, cafeteria. Was working remotely. Was supposed to go back to work in office on 08/01/21. for 8 hours per day. Naveen Thibodeaux PA-C [address] [place], [phone], [facility] 08/18/2021 10:17:01 08/26/2021 text/html Leny is a 25-year-old female presents in office for f/u evaluation of long covid syndrome. prior hx of tachyarrhythmia dx for covid-19 07/21/2021 but was sick a few days prior.intermittent fatigue, cough, and tachycardia.tachyarrh ythmia reappeared following covid-[address] cardiology [address] 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 Does need to ambulate back and forth to bathroom, cafeteria. Was working remotely. Was supposed to go back to work in office on 08/01/21. for 8 hours per day. 08/26/21Started on Verapamil 08/20/21 for the tachycardia, pt reports feeling tired for a couple days, stopped taking on sunday the after she had hives sunday night and ongoing weakness/fatigue and muscle aches. Marble better after stopping the Verapamil. 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 stated that she did not take the verapamil even though electric meter repairer apprentice recommended she continue. C/O heavy chest with activity, but ok at rest. SInce stopping verapamil she has felt more alert but still fatigued. she also notes body aches, and cloudy thoughts. recent memory abnormal. sensitivity to noise. also increase in headaches. Naveen Thibodeaux PA-C [address] [place] [address], [phone], [facility] 08/28/2021 21:21:11 09/08/2021 text/html Leny is a 25-year-old female presents in office for f/u evaluation of long covid syndrome. prior hx of tachyarrhythmia dx for covid-19 07/21/2021 but was sick a few days prior.intermittent fatigue, cough, and tachycardia.tachyarrh ythmia reappeared following covid-[address] cardiology [address] 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 Does need to ambulate back and forth to bathroom, cafeteria. Was working remotely. Was supposed to go back to work in office on 08/01/21. for 8 hours per day. 08/26/21Started on Verapamil 08/20/21 for the tachycardia per recommendation of cardiology. adverse side effects at d/c medication. following visit prescribed low dose propranolol and new cardiology referral placed as patient did not want to f/u with same cardiology group. Pt continues with body aches, and cloudy thoughts. recent memory abnormal. sensitivity to noise. also increase in headaches. remain OOW until after 09/13/2021 Today 09/08/2021 - has been taking propranolol 10 mg BID. resting heart rate down into the 60's and with exertion usually 90's or low 100's. f/u visit scheduled with cardiology in 1 week. She notes body aches continue. still sensitivity to sound and headaches/migraines. 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 Naveen Thibodeaux PA-C [address] [place] [address], [phone], [facility] 09/08/2021 08:44:36 09/26/2021 text/html Leny is a 25-year-old female presents in office for f/u evaluation of long covid syndrome. prior hx of tachyarrhythmia dx for covid-19 07/21/2021 but was sick a few days prior.intermittent fatigue, cough, and tachycardia.tachyarrh ythmia reappeared following covid-[address] cardiology [address] 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 Does need to ambulate back and forth to bathroom, cafeteria. Was working remotely. Was supposed to go back to work in office on 08/01/21. for 8 hours per day. 08/26/21Started on Verapamil 08/20/21 for the tachycardia per recommendation of cardiology. adverse side effects at d/c medication. following visit prescribed low dose propranolol and new cardiology referral placed as patient did not want to f/u with same cardiology group. Pt continues with body aches, and cloudy thoughts. recent memory abnormal. sensitivity to noise. also increase in headaches. remain OOW until after 09/13/2021 09/08/2021 - propranolol 10 mg BID. resting heart rate down into the 60's and with exertion usually 90's or low 100's. No side effects. f/u visit scheduled with cardiology in 1 week. She notes body aches continue. still sensitivity to sound and headaches/migraines. Symptoms manageable. 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 today noting migraines and triggered by lights and noise. she is using sumatriptan. continues amitriptyline daily at night. Heart rate has been well controlled with propanolol. tachyarrhythmia syndrome. meet with cardiology who recommends to continue propranolol. echo and holter monitor reassuring. Naveen Thibodeaux PA-C [address] [place] [address], [phone], [facility] 09/26/2021 09:58:02 OBGyn Episode No OBEpisode recorded.
== END 2024-07-15 11:29 | disposition home or self-care (01) ==
LOC: HO.HSMS 10:20
PROVIDERS: PCP Family Medicine; Visit Provider Nurse Practitioner Family
DX: G43.009 Migraine without aura, not intractable, without status migrainosus (principal); U09.9 Post COVID-19 condition, unspecified; F40.298 Other specified phobia; H53.149 Visual discomfort, unspecified
CPT/HCPCS: 99214

== ENCOUNTER 2025-01-15 11:19 | Outpatient (AMB) | payer OTHER, SELFPAY ==
--- OUTSIDE RECORDS SUMMARY | 2002-07-24 05:00 | XMS_ITS | Continuity of Care Document ---
Author Organization [facility] Address [place] [address] Phone Care Team Providers Care Tearer Press Clipping Name Role Phone Darcie Flowers MD Unavailable Unavailable Advance Directives Directive Yes / No Effective Date File Name No Information Encounters Encounter Description Practice Location Reason(s) For Visit Diagnoses Date Provider Providers Copied on Encounter [facility], [address] [place] [address], [id number], tel:[phone] [facility] Office 93 No Information Lionel Sprague. [address] [facility] [address], [place], [address], [place]. tel:[phone] Referring Provider: Peace Oquendo, [address] [facility] [address] , [place], [address]. tel:[phone] Family History Family Member Type Diagnosis Age At Onset No Information Payers Payer name Insurance type Covered constitution party ID Authoriza tigissell(s) Medicaid [id number] Social History Type Description Quantity Date Captured Comments Sex Female Smoking Status No Information Chief Complaint And Reason For Visit No Information Reason For Referral Reason For Referral No Information History Of Present Illness Encounter Date Complaint History Of Prese nt Illness No Information Functional Status Date Functional Assessmen t No Information Instructions Date Instruction Additional Infor mation No Information Assessments Type Assessment Date No Information Patient Care Teams Name Effective Dates (start - stop) Status Members No Information
--- NOTE | 2025-01-15 11:49 | A.OFFVIS_ITS ---
Vital Signs 01/15/25 11:50 Height 5 ft 6 in Weight 181 lb BMI 29.2 BP 110/80 Blood Pressure Location Rt brachial Position Sitting Pulse 79 Pulse Source Pulse Oximeter Pulse Oximetry (%) 96 Oxygen Delivery Method Room Air Intake Visit Reasons: 6 MO FU Intake Note: Patient presents follow up Migraine. 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 After the last visit, the patient started on Qulipta 60 mg daily, which has overall been effective in reducing her migraine intensity and severity, especially when not working. However, she sometimes has residual migraine on her off days, which may have been triggered by work status/conditions in the days before. Over the summer school break, she had barely any headaches or migraine attacks at all. Since the school year started and she has returned to work, she reports she is experiencing 2 headache days and 3 migraine attacks per week, now a/w stiff neck and body aches. She continues to be compliant with amitriptyline 100 mg nightly and propranolol 20 twice a day. Zofran helps the nausea. Using Rizatriptan helps, but the headache can come back. She continues to request higher work accommodations to reduce her overall light and noise exposure, as her migraine attacks are triggered by her work setting, where there are multiple co-workers, frequent meetings, and more exposure to indoor lighting. 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 She continues to use noise-cancellation earplugs and blue-light filtering glasses. She does use loop earplugs when out in public, such as at a restaurant. 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 Physical Exam Vital Signs: Last Vital Signs Pulse 79 01/15/25 11:50 BP 110/80 01/15/25 11:50 Pulse Ox 96 01/15/25 11:50 Oxygen Delivery Method Room Air 01/15/25 11:50 BMI result Body Mass Index 29.2 Assessment & Plan Assessment & Plan (1) Migraine without aura: Code(s): G43.009 - Migraine without aura, not intractable, without status migrainosus Category: Medical Qualifiers: Status migrainosus presence: without status migrainosus Intractability: not intractable Qualified Code(s): G43.009 - Migraine without aura, not intractable, without status migrainosus (2) COVID-19 long hauler: Code(s): U09.9 - Post COVID-19 condition, unspecified Category: Medical (3) Phonophobia: Code(s): F40.298 - Other specified phobia Category: Medical (4) Photophobia: Code(s): H53.149 - Visual discomfort, unspecified Category: Medical Plan For overall migraine and photophobia treatment: * Continue blue light filtering glasses and computer screens. Info previously shared on nighat tinted blue light filtering glasses. * Continue noise reduction headphones while at work. * Offered PT for neck tightness, however patient declines at this time * Encouraged patient to regularly perform her yoga practices For migraine prevention: * Continue Atogepant (Qulipta) 60mg daily at bedtime. * Continue Amitriptyline 100mg qhs. * Continue Propranolol 20mg bid- managed by cardiology. For acute migraine treatment: * Continue Rizatriptan 5-10mg (1/2 - 1 tab) at onset of headache, may repeat in 2 hours. Max of 2 tabs per 24 hours. * May trial taking triptan with diclofenac 50 mg every 12 hours as needed * Or may adjunct with OTC Tylenol 650mg q 4 hours, Ibuprofen 600mg q 6 hours, or Naproxen 440mg q 12 hrs prn. * Continue ondansetron 4 mg p.o. daily p.r.n. nausea/migraine. Previous acute migraine tx's- Sumatriptan- not tolerated. Future considerations- Nerivio (information given to pt), CGRP antagonist- such as atogepant Migraine prevention treatment contraindications: Would avoid CGRP monoclonal antibodies as she is needle phobic f/u in 6 months or sooner prn Medications: New diclofenac potassium 50 mg PO BID PRN 30 tabs 6RF pain 30 days Refilled amitriptyline 100 mg PO BEDTIME 90 tabs 1RF 90 days ondansetron HCl 4 mg PO BEDTIME 20 tabs 6RF 30 days rizatriptan max 2 tabs per day or 4 tabs per week 5 - 10 mg (0.5 - 1 x 10 mg) PO Q2H PRN 12 tabs 6RF migraine headache 21 days Coding Level of Care Code Est Pt Level 4 (39760) Diagnoses Migraine without aura and without status migrainosus, not intractable G43.009 Status migrainosus presence: without status migrainosus Intractability: not intractable COVID-19 long hauler U09.9 Phonophobia F40.298 Photophobia H53.149
[2025-01-15 11:50] VITALS: BP 110/80; PULSE 79; O2SAT 96; BMI 29.2
== END 2025-01-15 12:19 | disposition home or self-care (01) ==
LOC: HO.HSMS 11:20
PROVIDERS: PCP Family Medicine; Visit Provider Nurse Practitioner Family
DX: G43.009 Migraine without aura, not intractable, without status migrainosus (principal); U09.9 Post COVID-19 condition, unspecified; F40.298 Other specified phobia; H53.149 Visual discomfort, unspecified
CPT/HCPCS: 99214